=== PATIENT | female | born 1995 ===

== ENCOUNTER 2024-02-21 12:41 | Outpatient (CLI) | payer OTHER | END 2024-02-21 12:44 | disposition home or self-care (01) | LOC: PRENATAL 12:41 | PROVIDERS: ATTEND Obstetrics & Gynecology Maternal & Fetal Medicine | DX: O36.80X0 Pregnancy with inconclusive fetal viability, not applicable or unspecified (principal); Z36.82 Encounter for antenatal screening for nuchal translucency; O99.280 Endocrine, nutritional and metabolic diseases complicating pregnancy, unspecified trimester; Z3A.12 12 weeks gestation of pregnancy ==

== ENCOUNTER → 2024-04-13 08:08 | Outpatient (CLI) | payer OTHER ==
[~2024-04-13 08:08] MED LIST: SYNTHROID200 MCG PO
== END | disposition home or self-care (01) ==
LOC: PRENATAL 08:08
PROVIDERS: ATTEND Obstetrics & Gynecology Maternal & Fetal Medicine
DX: O44.00 Complete placenta previa NOS or without hemorrhage, unspecified trimester (principal); O99.280 Endocrine, nutritional and metabolic diseases complicating pregnancy, unspecified trimester; Z3A.20 20 weeks gestation of pregnancy

== ENCOUNTER 2024-06-10 08:28 | Outpatient (CLI) | payer OTHER | END 2024-06-10 08:30 | disposition home or self-care (01) | LOC: PRENATAL 08:28 | PROVIDERS: ATTEND Obstetrics & Gynecology Maternal & Fetal Medicine | DX: O26.849 Uterine size-date discrepancy, unspecified trimester (principal); O28.1 Abnormal biochemical finding on antenatal screening of mother; O99.280 Endocrine, nutritional and metabolic diseases complicating pregnancy, unspecified trimester; Z3A.27 27 weeks gestation of pregnancy ==